=== PATIENT | male | born 1955 | race Caucasian/White ===

== ENCOUNTER → 2016-10-21 | Outpatient (CLI) | payer OTHER ==
[~2016-10-21] MED LIST: ASPI-COR81 M1 PO; BYDUREON2 M1 SQ; CIPRO500 MG PO; FLEXERIL5 MG PO; GLIMEPIRIDE4 M1 PO; GLYBURIDE5 MG PO; HYDR25T; HYDROCODONE BIT1 T11 PO; IVOKANA; METFORMIN1000 MG PO; NEXIUM40 MG PO; QUINAPRIL40 MG PO; SIMVASTATIN20 MG PO; VICTOZA6 MG/ML SC
[2016-10-21 10:50] LABS: HEMOGLOBIN A1c 6.3 % (4.8-5.6)
== END | disposition home or self-care (01) ==
LOC: LAB 08:45
DX: E11.9 Type 2 diabetes mellitus without complications (principal)

== ENCOUNTER 2017-01-24 10:20 | Inpatient (IN) | payer OTHER ==
[~2017-01-24] VITALS: Ht 177.8 cm; Wt 101.2 kg
--- NOTE | ~2017-01-24 | CON ---
[place], [place] REPORT OF CONSULTATION NAME: NAOMI CHIN UNIT #: [id number] ROOM: 403 DOCTOR: MARLO SCHAEFER MD BIRTHDATE: [birth year] DOS: 01/24/2017 REASON FOR CONSULTATION: Chest pain. HISTORY OF PRESENT ILLNESS: The patient is a 61-year-old man who has no previous history of coronary artery disease. He does have history of type 2 diabetes mellitus for about 20 years and also has essential hypertension. He states that for the last year and a half, he has had episodes of chest pain when he exerts and especially when he lifts objects. The most recent of these episodes occurred this morning when he was walking his dog and the dog pulled away from him. He describes an aching pain in the center of his chest associated with some diaphoresis on the back of his neck. The pain may radiate into his jaw and into his left arm. With rest it resolves within 10 minutes. Occasionally, he has felt that he needed to take an aspirin for the pain, but then the pain resolved shortly after that. It is not associated with lightheadedness or syncope. It is not associated with stress. He has never had the pain at rest. The patient saw his primary physician, Dr. Rod this morning and described his symptoms to Dr. Rod. He was directed to come to the hospital for further assessment. Currently he is pain free. His EKG was compared to a previous tracing done in 2014 and he now does have T-wave inversions in leads 1 and aVL, which were not present previously. In addition, he does have Q-waves in leads III and aVF, which were not present previously. PAST MEDICAL HISTORY: Includes: 1. Type 2 diabetes mellitus, on oral medications for about 20 years. 2. Essential hypertension. 3. Gastroesophageal reflux disease. 4. History of prostate cancer. 5. Status post hernia surgery, prostate surgery and surgical manipulation of an ankle joint in 1973. MEDICATIONS PRIOR TO ADMISSION: Aspirin 81 mg daily, jardiance 25 mg daily, glimepiride 4 mg b.i.d. 1/2 tablet in the morning and 1 tablet in the evening, metformin 1000 mg b.i.d., quinapril 40 mg daily, simvastatin 20 mg at bedtime and Trulicity 1.5 mg subcutaneously once a week on Sundays. ALLERGIES: He lists allergies to COCONUT and PENICILLINS. REVIEW OF SYSTEMS: The patient denies diplopia or loss of vision. He denies focal weakness. He denies lightheadedness or syncope. He denies orthopnea or PND. He has had 1 to 2 pounds weight loss for the last several months monthly. He denies nausea or vomiting. He denies fevers, chills or sweats. He denies change in his appetite and denies hemoptysis or hematemesis. He denies cough or significant shortness of breath. He denies change in bowel or bladder habits and denies blood in his stools or urine. He denies any peripheral edema. He denies skin rashes. He denies polyuria, polydipsia or heat and cold intolerance. Remainder of the review of systems is negative except as noted above. [place], [place] REPORT OF CONSULTATION NAME: NAOMI CHIN UNIT #: [id number] ROOM: 403 DOCTOR: MARLO SCHAEFER MD BIRTHDATE: [birth year] SOCIAL HISTORY: The patient is and lives with his . 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 He never smoked and consumes alcohol only rarely. PHYSICAL EXAMINATION: GENERAL: Reveals an overweight white male who is awake, alert and oriented. VITAL SIGNS: Pulse is 79 and regular, blood pressure is 148/75. He is afebrile. He weighs 101.2 kg and has a body mass index of 32. HEENT: Normocephalic, atraumatic. Extraocular muscles are intact. Sclerae are clear. Pupils are equal, round and react to light. The oral mucosa is moist. Tongue is midline. NECK: Supple. He has no jugular distention. Carotids are full. I heard no bruits. He had no neck or supraclavicular masses and no thyromegaly. LUNGS: Respirations are unlabored. His chest is clear to auscultation and percussion. He has no presacral edema or chest wall tenderness. HEART: Has a regular rhythm. He has a fourth heart sound, but no third heart sound or murmur. The PMI is not displaced. He has no precordial heave, lift or thrill. ABDOMEN: Soft and normally active without masses, organomegaly or bruits. EXTREMITIES: Showed no clubbing, cyanosis or edema. Peripheral pulses were bounding in his feet. LABORATORY DATA: I reviewed his electrocardiograms and agree that he does have new T-wave inversions in I and aVL as well as new Q-waves in III and aVF when compared to a tracing from 12/16/2014. IMPRESSION: 1. Chest pain with exertion, consistent with stable angina pattern. 2. Type 2 diabetes mellitus. 3. Essential hypertension. PLAN: The patient's ML score is 2, indicating a fairly low risk for cardiac complications in the short term. If his troponins remain normal for a total of 3 determinations, I think that he can be discharged to home for an outpatient stress test to be done hopefully within the next 48 hours. In the meantime, I told the patient to curtail lifting activities and instructed him that if his pain should return and not resolve quickly that he should come back to the hospital for further assessment immediately. We will plan on doing an exercise myocardial perfusion study within the next few days with further recommendations depending upon the results of the stress test. I thank Dr. Painter and the hospitalist group for asking our advice regarding his care. [place], [place] REPORT OF CONSULTATION NAME: NAOMI CHIN UNIT #: [id number] ROOM: 403 DOCTOR: MARLO SCHAEFER MD BIRTHDATE: [birth year] MARLO SCHAEFER MD CM:CONSTR:REPORT OF CONSULTATION [id number] 01/24/172132 interface
[2017-01-24 10:35] VITALS: BP 154/88
--- NOTE | 2017-01-24 10:50 | NUR ---
PATIENT RESTING IN BED CALMLY AT THIS TIME WITH NO COMPLAINTS.
[2017-01-24 10:54] LABS: BASO % 0.5 % (0.0-1.0); EOS # 0.2 10*3/uL (0.0-0.4); HEMATOCRIT 48.7 % (42.0-52.0); HEMOGLOBIN 16.5 g/dl (14.0-18.0); LYMPH # 1.7 10*3/uL (1.3-4.4); LYMPH % 19.4 % (27.0-41.0); MEAN CELL VOLUME 88.5 fl (80.0-94.0); MEAN CORPUSCULAR HGB CONC 33.9 g/dl (33.0-37.0); MEAN PLATELET VOLUME 10.3 fl (9.6-12.3); MONO # 0.5 10*3/uL (0.1-1.0); NEUT # 6.1 10*3/uL (2.3-7.9); NEUT % 71.2 % (47.0-73.0); PLATELET COUNT AUTOMATED 224 10*3/uL (130-400); WHITE BLOOD COUNT 8.6 10*3/uL (4.8-10.8)
[2017-01-24 11:07] LABS: ACT PARTIAL THROMBO TIME 25.5 SECONDS (20.8-31.5)
[2017-01-24 11:10] LABS: ALBUMIN 4.1 gm/dl (3.1-4.5); ALKALINE PHOSPHATASE 56 U/L (45-117); BUN 17 mg/dl (7-24); CHLORIDE 104 mmol/L (98-107); CREATININE 0.94 mg/dL (0.70-1.30); POTASSIUM 4.5 mmol/L (3.5-5.1); SGOT/AST 33 IU/L (3-35); SGPT/ALT 60 U/L (12-78); SODIUM 140 mmol/L (136-145); TOTAL PROTEIN 7.6 gm/dL (6.4-8.2)
[2017-01-24 11:14] LABS: TROPONIN I < 0.015 ng/ml (<0.045)
--- NOTE | 2017-01-24 12:33 | NUR ---
ATETMPTED TO CALL REPORT AT THIS TIME. NURSE UNABLE TO TAKE REPORT AND BED NOT READY @ THIS TIME. 4TH FLOOR STATES THEY WILL CALL BACK WHEN BED IS READY
--- NOTE | 2017-01-24 12:38 | NUR ---
REPORT GIVEN TO LUZMA COREA RN AT THIS TIME. BED NOT READY. STATES THEY WILL CALL WHEN BED IS READY
--- NOTE | 2017-01-24 13:05 | NUR ---
A 61, admitted to 4E, under the services of COOKIE Nolasco DO with a diagnosis of CP R/O AR. Chief complaint is MIDSTERNAL CP, DIAPHORESIS. Patient arrived via ambulatory from ER. Monitor applied. Initial assessment completed. Vital signs taken and recorded. COOKIE NOLASCO DO notified of admission to the unit. Orders received. See assessment for past medical history, medications and allergies. Patient and/or family oriented to unit. [facility] visitation policy reviewed. Clothing/patient valuable form completed. LUZMA COREA
[2017-01-24 13:15] VITALS: BP 117/78
[2017-01-24] MEDS ORDERED: TRULICITY1.5 MG/0.5 SC (14:27)
[2017-01-24] MEDS ORDERED: JARDIANCE25 MG PO (14:27)
--- NOTE | 2017-01-24 14:45 | NUR ---
PT'S MED REC UPDATED PER LIST PROVIDED BY .
--- NOTE | 2017-01-24 15:16 | NUR ---
DR KNIGHT NOTIFIED OF UPDATED MED REC.
--- NOTE | 2017-01-24 15:50 | NUR ---
DR SCHAEFER HERE AND NOTIFIED OF NEW CONSULT.
[2017-01-24 16:00] VITALS: BP 148/75
--- NOTE | 2017-01-24 16:06 | NUR ---
PT'S BLOOD GLUCOSE CHECKED AT THIS TIME, 162. PT REFUSED INSULIN COVERAGE AT THIS TIME, STATES HE DOESN'T TAKE INSULIN AT HOME. EDUCATED PT ON IMPORTANCE OF COMPLYING. PT VERBALIZED UNDERSTANDING.
--- NOTE | 2017-01-24 16:10 | NUR ---
DR SCHAEFER IN TO SEE PT.
--- NOTE | 2017-01-24 16:42 | NUR ---
DR SCHAEFER HERE AT THIS TIME, STATES IF THIRD TROPONIN IS NEGATIVE PT CAN BE DISCHARGED AND PT COULD RETURN SUNDAY OR SUNDAY FOR OUT PATIENT STRESS TEST. STATES DR WASHINGTON WAS UPDATED ON THIS.
--- NOTE | 2017-01-24 17:58 | NUR ---
Discharge instructions reviewed with patient/family. Patient receptive and verbalizes understanding. Follow-up care arranged. Written instructions given to patient/family. IV site and personnel monitor removed. Pt denied need for transport to [facility]. LUZMA COREA
== END 2017-01-24 18:02 | disposition home or self-care (01) | DRG 206 ==
LOC: ED 10:20 → EDHOLD 12:04 → 4E 12:06
PROVIDERS: Emergency Medicine; ADMIT Internal Medicine
DX: M94.0 Chondrocostal junction syndrome [Tietze] (principal); E11.8 Type 2 diabetes mellitus with unspecified complications; I10 Essential (primary) hypertension; E78.5 Hyperlipidemia, unspecified; I20.8 Other forms of angina pectoris; K21.9 Gastro-esophageal reflux disease without esophagitis; Z82.3 Family history of stroke; Z88.0 Allergy status to penicillin; Z82.49 Family history of ischemic heart disease and other diseases of the circulatory system; I25.2 Old myocardial infarction; Z91.018 Allergy to other foods; Z83.3 Family history of diabetes mellitus; Z85.46 Personal history of malignant neoplasm of prostate; Z80.42 Family history of malignant neoplasm of prostate; Z79.82 Long term (current) use of aspirin; Z79.84 Long term (current) use of oral hypoglycemic drugs; Z79.899 Other long term (current) drug therapy

== ENCOUNTER → 2017-01-26 | Outpatient (CLI) | payer OTHER ==
[~2017-01-26] MED LIST changes: +JARDIANCE25 MG PO; +TRULICITY1.5 MG/0.5 SC
--- NOTE | ~2017-01-26 | ST ---
[place], [place] EXERCISE STRESS TEST REPORT [id number] UNIT #: [id number] ROOM: DOCTOR: MARLO SCHAEFER MD BIRTHDATE: [birth year] DOS: 01/26/2017 AN EXERCISE STRESS MYOCARDIAL PERFUSION STUDY REASON FOR STRESS TEST: Chest pain. PROCEDURE: The patient walked on a full Manuel protocol for 6 minutes and stopped for chest discomfort. His resting heart rate of 79 vic to 134, which was 85% of his maximum predicted heart rate. The resting blood pressure of 130/78 vic to 180/80. During the stress test, he did develop chest pressure, which was similar to, but less than what he has experienced at home. With exercise, he did develop up to 1.[address] segment depression in leads II, III, aVF and V4 through V6. Changes persisted 6 minutes into recovery. The patient's Swartz treadmill score was -5, consistent with a moderate risk for future cardiac events. One minute prior to the completion of the exercise protocol, he was given radionuclide intravenously. IMPRESSION: 1. Adequate exercise capacity. The patient did have chest discomfort with exercise. He also had 1.4 mm of flat inferior and lateral ST-segment depression during exercise. 2. Swartz treadmill score -5, consistent with a moderate risk for future cardiac events. Please see the separate imaging report for further details of the patient's stress test results. MARLO SCHAEFER MD CM:STRESS:EXERCISE STRESS TEST REPORT [id number] MARLO SCHAEFER MD
--- NOTE | 2017-01-26 13:01 | NUR ---
INFORMED SIGNED CONSENT OBTAINED FOR CARDIOLITE MARGARET STRESS TEST WITH DR SCHAEFER. RESTING EKG NSR HR 79 BP 130/78 IN SUPINE POSITION, STANDING HR 85 BP 126/78. PT COMPLETED 6:00 MINUTES OF A MARGARET PROTOCOL WITH PT COMPLETING STAGE II AT 2.5 MPH AND A 12% GRADE. PT REACHED A PEAK HR OF 134 WHICH REPRESENTS 85% OF PREDICTED MAXIMUM AND A PEAK BP OF 160/84. AT 3:00 MINUTES PT C/O CHEST PRESSURE 3/10 WITH 10 THE WORST. AT 5:00 MINUTES PT STATES PRESSURE IS NOW 5/10 WITH 10 THE WORST. CHEST PAIN WAS COMPLETLEY RESOLVED 0/10 AT 6 MINUTES RECOVERY. NO ARRHYTHMIAS NOTED. PT DID HAVE ST CHANGES: ST DEPRESSION IN I,II, III AND AVF, ALSO IN V1-V6. LAST RECOVERY HR OF 98 BP 144/80. DR SCHAEFER SPOKE WITH AND PT IN REGARDS TO ABNORMAL EKG CHANGES. PT IN STABLE CONDITION, AWAITING NUCLEAR IMAGES.
== END | disposition home or self-care (01) ==
LOC: NM 07:04
DX: R07.2 Precordial pain (principal)

== ENCOUNTER → 2017-03-24 | Outpatient (CLI) | payer OTHER ==
[2017-03-24 09:20] LABS: CHOLESTEROL 112 mg/dL (<200); HDL CHOLESTEROL 46 mg/dl (40-60); LDL CHOLESTEROL 36 mg/dL (9-159); TRIGLYCERIDES 150 mg/dl (<150); VLDL CHOLESTEROL 30 mg/dL (6-40)
== END | disposition home or self-care (01) ==
LOC: LAB 08:33
DX: Z12.5 Encounter for screening for malignant neoplasm of prostate (principal); E78.2 Mixed hyperlipidemia

== ENCOUNTER → 2017-08-25 | Outpatient (CLI) | payer OTHER ==
[2017-08-25 08:51] LABS: ALBUMIN 3.9 gm/dl (3.1-4.5); ALKALINE PHOSPHATASE 48 U/L (45-117); BUN 17 mg/dl (7-24); CHLORIDE 105 mmol/L (98-107); CHOLESTEROL 107 mg/dL (<200); CREATININE 0.87 mg/dL (0.70-1.30); HDL CHOLESTEROL 40 mg/dl (40-60); LDL CHOLESTEROL 27 mg/dL (9-159); SGOT/AST 15 IU/L (3-35); SGPT/ALT 46 U/L (12-78); SODIUM 140 mmol/L (136-145); TRIGLYCERIDES 198 mg/dl (<150); VLDL CHOLESTEROL 40 mg/dL (6-40)
== END ==
LOC: LAB 07:46
PROVIDERS: Physician Assistant Medical
DX: E78.00 Pure hypercholesterolemia, unspecified (principal); I10 Essential (primary) hypertension; E11.9 Type 2 diabetes mellitus without complications

== ENCOUNTER → 2017-12-28 | Outpatient (CLI) | payer OTHER | END | disposition home or self-care (01) | LOC: LAB 06:40 | DX: E11.65 Type 2 diabetes mellitus with hyperglycemia (principal) ==

== ENCOUNTER → 2018-04-03 | Outpatient (CLI) | payer OTHER | END | disposition home or self-care (01) | LOC: CT 08:34 | DX: K76.0 Fatty (change of) liver, not elsewhere classified (principal); N20.0 Calculus of kidney; I25.10 Atherosclerotic heart disease of native coronary artery without angina pectoris; R50.9 Fever, unspecified ==

== ENCOUNTER → 2018-08-31 | Outpatient (CLI) | payer OTHER ==
[2018-08-31 08:10] LABS: HEMATOCRIT 46.9 % (42.0-52.0); HEMOGLOBIN 15.6 g/dl (14.0-18.0); MEAN CELL VOLUME 91.6 fl (80.0-94.0); MEAN CORPUSCULAR HGB 30.5 pg (27.0-31.0); MEAN CORPUSCULAR HGB CONC 33.3 g/dl (33.0-37.0); MEAN PLATELET VOLUME 10.4 fl (9.6-12.3); RED BLOOD COUNT 5.12 10*6/uL (4.50-5.90); RED CELL DISTRI WIDTH 15.1 % (0-14.5)
[2018-08-31 08:21] LABS: ALBUMIN 3.9 gm/dl (3.1-4.5); ALKALINE PHOSPHATASE 43 U/L (45-117); BUN 17 mg/dl (7-24); CHLORIDE 107 mmol/L (98-107); CHOLESTEROL 96 mg/dL (<200); CREATININE 0.93 mg/dL (0.70-1.30); HDL CHOLESTEROL 42 mg/dl (40-60); LDL CHOLESTEROL 36 mg/dL (9-159); POTASSIUM 4.2 mmol/L (3.5-5.1); SGOT/AST 14 IU/L (3-35); SGPT/ALT 42 U/L (12-78); SODIUM 140 mmol/L (136-145); TOTAL PROTEIN 6.9 gm/dL (6.4-8.2); TRIGLYCERIDES 90 mg/dl (<150); VLDL CHOLESTEROL 18 mg/dL (6-40)
== END | disposition home or self-care (01) ==
LOC: LAB 07:27
PROVIDERS: Family Medicine
DX: Z12.5 Encounter for screening for malignant neoplasm of prostate (principal); E11.9 Type 2 diabetes mellitus without complications; I10 Essential (primary) hypertension; E78.00 Pure hypercholesterolemia, unspecified; E66.9 Obesity, unspecified

== ENCOUNTER → 2018-12-01 | Outpatient (CLI) | payer OTHER ==
[2018-12-01 12:50] LABS: ALBUMIN 3.8 gm/dl (3.1-4.5); ALKALINE PHOSPHATASE 44 U/L (45-117); BUN 12 mg/dl (7-24); CHLORIDE 105 mmol/L (98-107); CHOLESTEROL 107 mg/dL (<200); CPK 39 U/L (39-308); HDL CHOLESTEROL 40 mg/dl (40-60); LDL CHOLESTEROL 41 mg/dL (9-159); POTASSIUM 4.1 mmol/L (3.5-5.1); SGOT/AST 15 IU/L (3-35); SGPT/ALT 45 U/L (12-78); SODIUM 139 mmol/L (136-145); TOTAL PROTEIN 6.9 gm/dL (6.4-8.2); TRIGLYCERIDES 132 mg/dl (<150); VLDL CHOLESTEROL 26 mg/dL (6-40)
[2018-12-03 11:11] LABS: CREATININE,URINE 55.7 mg/dL (Not Estab.); MICRO ALBUMIN/CRE RATIO <5.4 (0.0-30.0)
== END | disposition home or self-care (01) ==
LOC: LAB 09:31
PROVIDERS: Family Medicine; Internal Medicine Endocrinology, Diabetes & Metabolism
DX: E11.65 Type 2 diabetes mellitus with hyperglycemia (principal); I10 Essential (primary) hypertension; E55.9 Vitamin D deficiency, unspecified; E78.2 Mixed hyperlipidemia

== ENCOUNTER → 2019-04-19 | Outpatient (CLI) | payer OTHER ==
[2019-04-19 08:43] LABS: HEMATOCRIT 48.9 % (42.0-52.0); HEMOGLOBIN 16.1 g/dl (14.0-18.0); MEAN CELL VOLUME 91.6 fl (80.0-94.0); MEAN CORPUSCULAR HGB 30.1 pg (27.0-31.0); MEAN CORPUSCULAR HGB CONC 32.9 g/dl (33.0-37.0); MEAN PLATELET VOLUME 10.2 fl (9.6-12.3); RED BLOOD COUNT 5.34 10*6/uL (4.50-5.90); RED CELL DISTRI WIDTH 15.5 % (0-14.5); WHITE BLOOD COUNT 6.2 10*3/uL (4.8-10.8)
[2019-04-19 09:15] LABS: ALBUMIN 4.1 gm/dl (3.1-4.5); ALKALINE PHOSPHATASE 44 U/L (45-117); BUN 15 mg/dl (7-24); CHLORIDE 108 mmol/L (98-107); CPK 34 U/L (39-308); CREATININE 0.88 mg/dL (0.70-1.30); POTASSIUM 4.4 mmol/L (3.5-5.1); SGOT/AST 20 IU/L (3-35); SGPT/ALT 51 U/L (12-78); SODIUM 140 mmol/L (136-145)
[2019-04-19 09:21] LABS: CHOLESTEROL 94 mg/dL (<200); HDL CHOLESTEROL 41 mg/dl (40-60); LDL CHOLESTEROL 29 mg/dL (9-159); VLDL CHOLESTEROL 24 mg/dL (6-40)
== END | disposition home or self-care (01) ==
LOC: LAB 08:22
PROVIDERS: Family Medicine; Internal Medicine Endocrinology, Diabetes & Metabolism
DX: I10 Essential (primary) hypertension (principal); E11.9 Type 2 diabetes mellitus without complications; E78.00 Pure hypercholesterolemia, unspecified; E55.9 Vitamin D deficiency, unspecified

== ENCOUNTER → 2019-04-30 | Outpatient (CLI) | payer OTHER ==
[2019-04-30 07:38] LABS: BILIRUBIN, DIRECT 0.3 mg/dL (0.0-0.2)
[2019-05-01 15:09] LABS: ANTI-SMOOTH MUSCLE ANTIBODY 8 Units (0-19)
== END | disposition home or self-care (01) ==
LOC: LAB 06:31
PROVIDERS: Family Medicine
DX: E78.5 Hyperlipidemia, unspecified (principal)

== ENCOUNTER → 2019-07-19 | Outpatient (CLI) | payer OTHER ==
[2019-07-19 08:24] LABS: HEMATOCRIT 46.1 % (42.0-52.0); MEAN CELL VOLUME 90.6 fl (80.0-94.0); MEAN CORPUSCULAR HGB 30.1 pg (27.0-31.0); MEAN CORPUSCULAR HGB CONC 33.2 g/dl (33.0-37.0); MEAN PLATELET VOLUME 10.4 fl (9.6-12.3); RED BLOOD COUNT 5.09 10*6/uL (4.50-5.90); RED CELL DISTRI WIDTH 15.6 % (0-14.5); WHITE BLOOD COUNT 6.9 10*3/uL (4.8-10.8)
[2019-07-19 08:28] LABS: ALBUMIN 3.9 gm/dl (3.1-4.5); ALKALINE PHOSPHATASE 46 U/L (45-117); BUN 20 mg/dl (7-24); CHLORIDE 103 mmol/L (98-107); CREATININE 0.83 mg/dL (0.70-1.30); HDL CHOLESTEROL 41 mg/dl (40-60); POTASSIUM 4.4 mmol/L (3.5-5.1); SGOT/AST 17 IU/L (3-35); SGPT/ALT 47 U/L (12-78); SODIUM 138 mmol/L (136-145); TRIGLYCERIDES 135 mg/dl (<150); VLDL CHOLESTEROL 27 mg/dL (6-40)
[2019-07-19 08:49] LABS: CHOLESTEROL 116 mg/dL (<200); LDL CHOLESTEROL 48 mg/dL (9-159)
== END | disposition home or self-care (01) ==
LOC: LAB 07:44
PROVIDERS: Family Medicine
DX: E11.9 Type 2 diabetes mellitus without complications (principal); I10 Essential (primary) hypertension; E55.9 Vitamin D deficiency, unspecified; E78.00 Pure hypercholesterolemia, unspecified; Z12.5 Encounter for screening for malignant neoplasm of prostate

== ENCOUNTER → 2019-08-13 | Outpatient (CLI) | payer OTHER ==
[2019-08-13 10:25] LABS: MEAN CELL VOLUME 89.8 fl (80.0-94.0); MEAN CORPUSCULAR HGB CONC 33.4 g/dl (33.0-37.0); MEAN PLATELET VOLUME 9.9 fl (9.6-12.3); RED BLOOD COUNT 4.9 10*6/uL (4.50-5.90); RED CELL DISTRI WIDTH 15.6 % (0-14.5); WHITE BLOOD COUNT 7.7 10*3/uL (4.8-10.8)
[2019-08-13 10:54] LABS: ALBUMIN 3.7 gm/dl (3.1-4.5); ALKALINE PHOSPHATASE 53 U/L (45-117); BUN 17 mg/dl (7-24); CHLORIDE 102 mmol/L (98-107); CREATININE 0.85 mg/dL (0.70-1.30); POTASSIUM 4.6 mmol/L (3.5-5.1); SGOT/AST 21 IU/L (3-35); SGPT/ALT 58 U/L (12-78); SODIUM 134 mmol/L (136-145); TOTAL PROTEIN 7.1 gm/dL (6.4-8.2)
== END | disposition home or self-care (01) ==
LOC: LAB 10:05
PROVIDERS: Family Medicine
DX: S40.861A Insect bite (nonvenomous) of right upper arm, initial encounter (principal); W57.XXXA Bitten or stung by nonvenomous insect and other nonvenomous arthropods, initial encounter; Y93.89 Activity, other specified; Y92.89 Other specified places as the place of occurrence of the external cause; Y99.8 Other external cause status

== ENCOUNTER → 2019-09-24 | Outpatient (CLI) | payer OTHER | END | disposition home or self-care (01) | LOC: COVID19 12:44 | DX: J00 Acute nasopharyngitis [common cold] (principal); Z20.828 Contact with and (suspected) exposure to other viral communicable diseases ==

== ENCOUNTER → 2019-10-18 | Outpatient (CLI) | payer OTHER ==
[2019-10-18 08:30] LABS: HEMATOCRIT 45.3 % (42.0-52.0); MEAN CORPUSCULAR HGB 29.5 pg (27.0-31.0); MEAN CORPUSCULAR HGB CONC 33.1 g/dl (33.0-37.0); MEAN PLATELET VOLUME 10.6 fl (9.6-12.3); RED BLOOD COUNT 5.09 10*6/uL (4.50-5.90); WHITE BLOOD COUNT 7.6 10*3/uL (4.8-10.8)
[2019-10-18 08:51] LABS: ALBUMIN 3.8 gm/dl (3.1-4.5); ALKALINE PHOSPHATASE 44 U/L (45-117); BUN 13 mg/dl (7-24); CHLORIDE 107 mmol/L (98-107); CHOLESTEROL 114 mg/dL (<200); CREATININE 0.78 mg/dL (0.70-1.30); HDL CHOLESTEROL 46 mg/dl (40-60); LDL CHOLESTEROL 41 mg/dL (9-159); SGOT/AST 18 IU/L (3-35); SGPT/ALT 38 U/L (12-78); SODIUM 138 mmol/L (136-145); TOTAL PROTEIN 7.1 gm/dL (6.4-8.2); VLDL CHOLESTEROL 27 mg/dL (6-40)
== END | disposition home or self-care (01) ==
LOC: LAB 07:14
PROVIDERS: Family Medicine; Internal Medicine Endocrinology, Diabetes & Metabolism
DX: E11.65 Type 2 diabetes mellitus with hyperglycemia (principal); E78.2 Mixed hyperlipidemia; E78.00 Pure hypercholesterolemia, unspecified; I10 Essential (primary) hypertension; E55.9 Vitamin D deficiency, unspecified

== ENCOUNTER → 2020-04-29 | Outpatient (CLI) | payer OTHER ==
[2020-04-29 08:13] LABS: ALBUMIN 4.2 gm/dl (3.1-4.5); ALKALINE PHOSPHATASE 48 U/L (45-117); BUN 19 mg/dl (7-24); CHLORIDE 107 mmol/L (98-107); CHOLESTEROL 104 mg/dL (<200); CREATININE 0.86 mg/dL (0.70-1.30); HDL CHOLESTEROL 46 mg/dl (40-60); LDL CHOLESTEROL 32 mg/dL (9-159); POTASSIUM 4.5 mmol/L (3.5-5.1); SGOT/AST 17 IU/L (3-35); SGPT/ALT 41 U/L (12-78); SODIUM 141 mmol/L (136-145); TOTAL PROTEIN 7.4 gm/dL (6.4-8.2); VLDL CHOLESTEROL 26 mg/dL (6-40)
== END | disposition home or self-care (01) ==
LOC: LAB 06:23
PROVIDERS: ATTEND Internal Medicine Endocrinology, Diabetes & Metabolism
DX: E11.65 Type 2 diabetes mellitus with hyperglycemia (principal); E78.2 Mixed hyperlipidemia

== ENCOUNTER → 2020-09-18 | Outpatient (CLI) | payer OTHER ==
[2020-09-18 07:59] LABS: HEMATOCRIT 44.5 % (42.0-52.0); MEAN CELL VOLUME 91.9 fl (80.0-94.0); MEAN CORPUSCULAR HGB CONC 32.6 g/dl (33.0-37.0); RED BLOOD COUNT 4.84 10*6/uL (4.50-5.90); RED CELL DISTRI WIDTH 15.7 % (0-14.5); WHITE BLOOD COUNT 5.9 10*3/uL (4.8-10.8)
[2020-09-18 08:30] LABS: ALBUMIN 3.9 gm/dl (3.1-4.5); ALKALINE PHOSPHATASE 53 U/L (45-117); BUN 16 mg/dl (7-24); CHLORIDE 108 mmol/L (98-107); CHOLESTEROL 102 mg/dL (<200); CREATININE 0.85 mg/dL (0.70-1.30); LDL CHOLESTEROL 40 mg/dL (9-159); POTASSIUM 4.5 mmol/L (3.5-5.1); SGOT/AST 15 IU/L (3-35); SGPT/ALT 45 U/L (12-78); SODIUM 139 mmol/L (136-145); TOTAL PROTEIN 6.9 gm/dL (6.4-8.2); TRIGLYCERIDES 88 mg/dl (<150)
[2020-09-19 09:07] LABS: RHEUMATOID ARTHRITIS FACTOR <10.0 IU/mL (0.0-13.9)
[2020-09-19 10:06] LABS: H PYLORI IGG AB 0.47 (0.00-0.79)
== END | disposition home or self-care (01) ==
LOC: LAB 07:29
PROVIDERS: ATTEND Family Medicine
DX: Z12.5 Encounter for screening for malignant neoplasm of prostate (principal); E55.9 Vitamin D deficiency, unspecified; E11.9 Type 2 diabetes mellitus without complications; M54.9 Dorsalgia, unspecified; M79.643 Pain in unspecified hand

== ENCOUNTER → 2020-09-23 | Outpatient (CLI) | payer OTHER | END | disposition home or self-care (01) | LOC: US 09:14 | PROVIDERS: ATTEND Nurse Practitioner Family | DX: K76.0 Fatty (change of) liver, not elsewhere classified (principal); K82.8 Other specified diseases of gallbladder; J90 Pleural effusion, not elsewhere classified; K21.9 Gastro-esophageal reflux disease without esophagitis; E80.6 Other disorders of bilirubin metabolism ==

== ENCOUNTER → 2020-11-07 | Outpatient (CLI) | payer OTHER ==
[2020-11-07 08:49] LABS: ALBUMIN 3.6 gm/dl (3.1-4.5); ALKALINE PHOSPHATASE 43 U/L (45-117); BUN 16 mg/dl (7-24); CHLORIDE 106 mmol/L (98-107); CHOLESTEROL 107 mg/dL (<200); CREATININE 0.81 mg/dL (0.70-1.30); LDL CHOLESTEROL 42 mg/dL (9-159); POTASSIUM 4.3 mmol/L (3.5-5.1); SGOT/AST 12 IU/L (3-35); SGPT/ALT 30 U/L (12-78); SODIUM 141 mmol/L (136-145); TOTAL PROTEIN 6.9 gm/dL (6.4-8.2); TRIGLYCERIDES 109 mg/dl (<150)
[2020-11-09 06:06] LABS: LDL CHOLESTEROL (DIRECT) 57 mg/dL (0-99)
== END | disposition home or self-care (01) ==
LOC: LAB 07:52
PROVIDERS: Internal Medicine Endocrinology, Diabetes & Metabolism; ATTEND Family Medicine
DX: E11.65 Type 2 diabetes mellitus with hyperglycemia (principal); E78.2 Mixed hyperlipidemia; E80.6 Other disorders of bilirubin metabolism

== ENCOUNTER 2023-02-23 07:38 | Emergency (ER) | payer OTHER ==
[2023-02-23 08:10] LABS: BASO % 0.4 % (0.0-1.0); EOS # 0.1 10*3/uL (0.0-0.4); EOS % 0.5 % (1.0-4.0); HEMATOCRIT 46.6 % (42.0-52.0); LYMPH # 0.9 10*3/uL (1.3-4.4); LYMPH % 8.6 % (27.0-41.0); MEAN CELL VOLUME 92.5 fl (80.0-94.0); MEAN CORPUSCULAR HGB 29.8 pg (27.0-31.0); MEAN CORPUSCULAR HGB CONC 32.2 g/dl (33.0-37.0); MEAN PLATELET VOLUME 10.5 fl (9.6-12.3); MONO # 0.4 10*3/uL (0.1-1.0); MONO % 3.3 % (3.0-9.0); NEUT # 9.5 10*3/uL (2.3-7.9); NEUT % 86.7 % (47.0-73.0); PLATELET COUNT AUTOMATED 204 10*3/uL (130-400); RED BLOOD COUNT 5.04 10*6/uL (4.50-5.90); RED CELL DISTRI WIDTH 15.9 % (0-14.5)
[2023-02-23] MEDS ORDERED: ALTACE10 MG PO (08:15)
[2023-02-23] MEDS ORDERED: PANTOPRAZOLE SO40 MG PO (08:16)
[2023-02-23] MEDS ORDERED: LIPITOR40 MG PO (08:16)
[2023-02-23] MEDS ORDERED: IMDUR SA30 MG PO (08:17)
[2023-02-23] MEDS ORDERED: METOPROLOL SUCC25 M2 PO (08:18)
[2023-02-23] MEDS ORDERED: ALDACTONE25 M1 PO (08:19)
[2023-02-23] MEDS ORDERED: FUROSEMIDE20 M1 PO (08:20)
[2023-02-23] MEDS ORDERED: FARXIGA10 M1 PO (08:20)
[2023-02-23] MEDS ORDERED: VASCEPA1 G1 PO (08:21)
[2023-02-23] MEDS ORDERED: VITAMIN D3125 MCG PO (08:22)
[2023-02-23 08:29] LABS: ACT PARTIAL THROMBO TIME 26.1 SECONDS (20.0-32.1)
[2023-02-23 08:30] LABS: ALKALINE PHOSPHATASE 58 U/L (46-116); BUN 14 mg/dl (9-23); CHLORIDE 104 mmol/L (98-107); POTASSIUM 4.4 mmol/L (3.4-5.1); SGPT/ALT 58 U/L (5-49); TOTAL PROTEIN 7.2 gm/dL (6.0-8.0)
[2023-02-23 08:38] LABS: BILIRUBIN Negative (Negative); BLOOD Negative (Negative); CLARITY Clear (Clear); COLOR Yellow (Yellow); GLUCOSE 3+ (Negative); KETONE Trace (Negative); LEUKO ESTERASE Negative (Negative); NITRITE Negative (Negative); SPECIFIC GRAVITY >= 1.030 (1.001-1.030)
[2023-02-23 08:45] LABS: WBC 0-2 wbc/hpf (0-5); YEAST TRACE
[2023-02-23 08:46] LABS: RBC 0-2 rbc/hpf (0-2)
== END 2023-02-23 23:25 | disposition short-term general hospital (02) ==
LOC: ED 07:38
PROVIDERS: Family Medicine
DX: I21.4 Non-ST elevation (NSTEMI) myocardial infarction (principal); I48.0 Paroxysmal atrial fibrillation; E11.9 Type 2 diabetes mellitus without complications; I10 Essential (primary) hypertension; Z91.018 Allergy to other foods; Z88.0 Allergy status to penicillin; Z98.890 Other specified postprocedural states; F17.210 Nicotine dependence, cigarettes, uncomplicated